=== PATIENT | female | born 1955 | race Caucasian/White ===

== ENCOUNTER → 2018-07-04 | Outpatient (CLI) | payer OTHER ==
[~2018-07-04] MED LIST: ESTROGEN; MEDR2.5; METO25ER PO; PROP60 PO
[2018-07-06 15:07] LABS: HPV 16 Negative (Negative); HPV 18 Negative (Negative); HPV OTHER HR TYPES Negative (Negative)
== END | disposition home or self-care (01) ==
LOC: LAB 12:31 → LAB SHORT 12:31
PROVIDERS: Nurse Practitioner Obstetrics & Gynecology
DX: Z01.419 Encounter for gynecological examination (general) (routine) without abnormal findings (principal)
CPT/HCPCS: 87624; G0123

== ENCOUNTER → 2019-09-18 | Outpatient (CLI) | payer OTHER | END | disposition home or self-care (01) | LOC: LAB SHORT 08:37 → PLD 08:37 | DX: D48.5 Neoplasm of uncertain behavior of skin (principal) | CPT/HCPCS: 88305 ==

== ENCOUNTER → 2020-06-18 | Outpatient (CLI) | payer OTHER | END | disposition home or self-care (01) | LOC: PLD 11:02 → LAB SHORT 11:02 | DX: D48.5 Neoplasm of uncertain behavior of skin (principal) | CPT/HCPCS: 88305 ==

== ENCOUNTER → 2021-03-24 | Outpatient (CLI) | payer OTHER | END | disposition home or self-care (01) | LOC: LAB SHORT 13:02 → LAB 13:02 | DX: R10.13 Epigastric pain (principal) | CPT/HCPCS: 87338 ==

== ENCOUNTER → 2021-06-18 | Outpatient (CLI) | payer OTHER ==
[2021-06-22 13:30] LABS: Stool Occult Blood Guaiac 1 Neg (Neg)
[2021-06-22 13:31] LABS: Stool Occult Blood Guaiac 2 Neg (Neg)
== END | disposition home or self-care (01) ==
LOC: LAB SHORT 08:30
PROVIDERS: Internal Medicine
DX: Z12.11 Encounter for screening for malignant neoplasm of colon (principal)
CPT/HCPCS: 82270

== ENCOUNTER → 2021-09-09 | Outpatient (CLI) | payer OTHER ==
[2021-09-09 08:22] LABS: BASOPHILS ABSOLUTE AUTO 0.04 K/mm3 (0.00-0.23); BASOPHILS PERCENT AUTO 1 % (0-2); EOSINOPHILS ABSOLUTE AUTO 0.12 K/mm3 (0.00-0.68); EOSINOPHILS PERCENT AUTO 2 % (0-6); Hematocrit 43.5 % (33.0-51.0); Hemoglobin 14.5 g/dL (11.5-16.0); IMMATURE GRAN ABSOLUTE AUTO 0.02 K/mm3 (0.00-0.10); IMMATURE GRAN PERCENT AUTO 0 % (0-1); LYMPHOCYTES ABSOLUTE AUTO 1.89 K/mm3 (0.84-5.20); LYMPHOCYTES PERCENT AUTO 34 % (21-46); MONOCYTES ABSOLUTE AUTO 0.62 K/mm3 (0.16-1.47); MONOCYTES PERCENT AUTO 11 % (4-13); Mean Corpuscular HGB 31.7 pg (26.0-34.0); Mean Corpuscular HGB Conc 33.3 g/dL (31.5-36.5); Mean Corpuscular Volume 95 fL (80-100); Mean Platelet Volume 10.3 fL (9.1-12.4); NEUTROPHILS ABSOLUTE AUTO 2.84 K/mm3 (1.96-9.15); NEUTROPHILS PERCENT AUTO 51 % (41-73); Platelet Count 268 K/mm3 (150-400); RDW Coefficient Variation 13.2 % (11.7-14.2); RDW Standard Deviation 46.5 fL (35.1-46.3); Red Blood Cell Count 4.58 M/mm3 (3.80-5.20); White Blood Cell Count 5.53 K/mm3 (4.00-11.30)
[2021-09-09 08:36] LABS: Albumin, Blood 3.6 g/dL (3.4-5.0); Albumin/Globulin Ratio 1.1 (0.8-1.8); Bilirubin, Total 0.6 mg/dL (0.1-1.0); Bun/Creatinine Ratio 25.5 (12.0-20.0); Calcium, Blood 9.3 mg/dL (8.5-10.1); Creatinine, Blood 0.71 mg/dL (0.40-1.00); Globulin, Blood 3.4 g/dL (2.2-4.0); Potassium, Blood 4.7 mmol/L (3.5-5.5); Thyroid Stimulating Hormone 1.65 uIU/mL (0.360-4.800)
== END | disposition home or self-care (01) ==
LOC: LAB SHORT 06:49
PROVIDERS: Internal Medicine
DX: R73.9 Hyperglycemia, unspecified (principal); R03.0 Elevated blood-pressure reading, without diagnosis of hypertension
CPT/HCPCS: 36415; 80053; 83036; 84443; 85025

== ENCOUNTER → 2021-09-23 | Outpatient (CLI) | payer OTHER ==
[2021-09-24 10:11] LABS: Candida species (DNA Probe) Negative (NEGATIVE); G. vaginalis (DNA Probe) Positive (NEGATIVE); T. vaginalis (DNA Probe) Negative (NEGATIVE)
== END | disposition home or self-care (01) ==
LOC: LAB SHORT 11:30 → LAB 11:30
PROVIDERS: Family Medicine
DX: N89.8 Other specified noninflammatory disorders of vagina (principal)
CPT/HCPCS: 87480; 87510; 87660

== ENCOUNTER → 2021-11-04 | Outpatient (CLI) | payer OTHER | END | disposition home or self-care (01) | LOC: PLD 14:01 → LAB SHORT 14:01 | DX: N84.1 Polyp of cervix uteri (principal) | CPT/HCPCS: 88305 ==

== ENCOUNTER → 2022-03-14 | Outpatient (CLI) | payer MEDICARE, BC ==
[2022-03-16 09:11] LABS: HPV 16 Negative (Negative); HPV 18 Negative (Negative); HPV OTHER HR TYPES Negative (Negative)
== END ==
LOC: LAB SHORT 15:09
PROVIDERS: Family Medicine
DX: Z01.419 Encounter for gynecological examination (general) (routine) without abnormal findings (principal)
CPT/HCPCS: 87624; G0123

== ENCOUNTER → 2022-05-03 | Outpatient (CLI) | payer MEDICARE, BC | END | disposition home or self-care (01) | LOC: LAB SHORT 11:24 → LAB 11:24 | DX: L57.0 Actinic keratosis (principal) | CPT/HCPCS: 88305 ==

== ENCOUNTER 2022-07-01 06:13 | Day surgery (SDC) | payer MEDICARE, BC ==
[~2022-07-01] VITALS: Ht 180.3 cm; Wt 70.5 kg
[2022-07-01] MEDS ORDERED: PROG100 PO (06:56)
[2022-07-01] MEDS ORDERED: ESTRADIOL (TWI1 EAC4 TD (06:56)
--- NOTE | 2022-07-01 09:28 | NUR ---
07/01/22 0928 Dixie Verde PT STATES PAIN SHE CAN FEEL IT BUT JUST AN ACHE PAIN SCALE AT 1 BUT TOLERABLE. PT IN RECLINER WITH AT SIDE.
== END 2022-07-01 09:50 | disposition home or self-care (01) ==
LOC: ORSCSDS 06:13
PROVIDERS: Podiatrist Foot & Ankle Surgery
PROC: 0SGN04Z Fusion of Left Metatarsal-Phalangeal Joint with Internal Fixation Device, Open Approach (ICD-10-PCS; principal; 2022-07-01 07:30)
PROC: 0SGQ04Z Fusion of Left Toe Phalangeal Joint with Internal Fixation Device, Open Approach (ICD-10-PCS; principal; 2022-07-01 07:30)
DX: M20.5X2 Other deformities of toe(s) (acquired), left foot (principal); M20.42 Other hammer toe(s) (acquired), left foot; M79.672 Pain in left foot; Z79.899 Other long term (current) drug therapy
CPT/HCPCS: C1713; J0171; J0690; J1100; J1885; J2250; J2370; J2405; J2704; J2795; J3010; J7120

== ENCOUNTER 2022-08-20 13:57 | Emergency (ER) | payer MEDICARE, BC ==
[~2022-08-20] VITALS: Ht 177.8 cm; Wt 69.8 kg
[~2022-08-20 13:57] MED LIST changes: +ESTRADIOL (TWI1 EAC4 TD; +PROG100 PO
[2022-08-20 14:29] LABS: BASOPHILS ABSOLUTE AUTO 0.05 K/mm3 (0.00-0.23); BASOPHILS PERCENT AUTO 1 % (0-2); EOSINOPHILS ABSOLUTE AUTO 0.17 K/mm3 (0.00-0.68); EOSINOPHILS PERCENT AUTO 2 % (0-6); Hematocrit 42.9 % (33.0-51.0); Hemoglobin 14.7 g/dL (11.5-16.0); IMMATURE GRAN ABSOLUTE AUTO 0.04 K/mm3 (0.00-0.10); IMMATURE GRAN PERCENT AUTO 1 % (0-1); LYMPHOCYTES PERCENT AUTO 40 % (21-46); MONOCYTES ABSOLUTE AUTO 0.78 K/mm3 (0.16-1.47); MONOCYTES PERCENT AUTO 10 % (4-13); Mean Corpuscular HGB 31.7 pg (26.0-34.0); Mean Corpuscular HGB Conc 34.3 g/dL (31.5-36.5); Mean Corpuscular Volume 93 fL (80-100); Mean Platelet Volume 10.3 fL (9.1-12.4); NEUTROPHILS ABSOLUTE AUTO 3.43 K/mm3 (1.96-9.15); NEUTROPHILS PERCENT AUTO 46 % (41-73); Platelet Count 270 K/mm3 (150-400); RDW Coefficient Variation 13.3 % (11.7-14.2); RDW Standard Deviation 45.3 fL (35.1-46.3); Red Blood Cell Count 4.64 M/mm3 (3.80-5.20); White Blood Cell Count 7.47 K/mm3 (4.00-11.30)
[2022-08-20 14:46] LABS: Albumin/Globulin Ratio 1.2 (0.8-1.8); Bilirubin, Total 0.3 mg/dL (0.1-1.0); Bun/Creatinine Ratio 18.9 (12.0-20.0); Calcium, Blood 9.5 mg/dL (8.5-10.1); Creatinine, Blood 0.95 mg/dL (0.40-1.00); Globulin, Blood 3.3 g/dL (2.2-4.0); Potassium, Blood 3.7 mmol/L (3.5-5.5); Total Protein, Blood 7.3 g/dL (6.4-8.2)
[2022-08-20 17:14] VITALS: BP 148/87
== END 2022-08-20 17:15 | disposition home or self-care (01) ==
LOC: ER 13:57
PROVIDERS: Emergency Medicine
DX: R10.13 Epigastric pain (principal); Z88.5 Allergy status to narcotic agent; Z79.899 Other long term (current) drug therapy
CPT/HCPCS: 71046; 80053; 83690; 83880; 84484; 85025; 93005; 93010; 96361; 96374; 99284-25; A9270; C9113; J7030

== ENCOUNTER 2024-01-01 07:40 | Day surgery (SDC) | payer MEDICARE, BC ==
[2024-01-01] VITALS (10 sets, daily range): BP systolic 117–146; BP diastolic 66–83
[~2024-01-01] VITALS: Ht 177.8 cm; Wt 69.8 kg
[~2024-01-01 07:40] MED LIST changes: +AZELASTINE137 MCG/01 INH; +BUSPIRONE HCL7.5 M1 PO; +Calcium Carbon500 MG PO; +CeFAZolin Sodium 2,000 MG in NS 100 ML IV SCH; +DHEA PO; +FISH OIL 1,0001 EA10 PO; +KETO.5OPSO RIGHTEYE; +Lactated Ringer's 1,000 ML IV SCH; +MAGNESIUM OXID500 MG PO; +PRED FORTE5 M1 RIGHTEYE; +PRESERVISION A1 EAC4 PO; +SERT25 PO; +VITAMIN D5000 UNIT PO
--- NOTE | 2024-01-01 08:30 | NUR ---
Ambulatory in Day Surgery History, Chart, Medications and Allergies reviewed before start of procedure. Lungs clear T/O to Auscultation. Patient confirms NPO status and agrees with scheduled surgery. Patient reports completing Chlorhexadine shower X2 prior to admission to hospital.Surgical site prepped with 2% Chlorhexidine cloth wipe. Patient States Post-Procedure ride home has been arranged.
--- NOTE | 2024-01-01 08:37 | NUR ---
PT VERBALIZES HER DESIRE TO "NOT HAVE ANY ANTIBIOTICS." WILL DISCUSS WITH .
[2024-01-01] MEDS ORDERED: Bupivacaine 0.5% HCl 5 MG/ML 30MLVIAL ONE (09:30)
[2024-01-01] MEDS ORDERED: Midazolam HCl 1MG / ML 2ML Vial IV ONE (09:35)
[2024-01-01] MEDS ORDERED: FentaNYL Citrate 50 MCG/ML 2 ML Injection ONE (09:42)
[2024-01-01] MEDS ORDERED: Midazolam HCl 1MG / ML 2ML Vial ONE (09:46)
[2024-01-01] MEDS ORDERED: Ondansetron HCl 2 MG / ML 2ML Vial ONE (10:08)
[2024-01-01] MEDS ORDERED: FentaNYL Citrate 50 MCG/ML 2 ML Injection IV PRN ×3 (10:20)
[2024-01-01] MEDS ORDERED: Labetalol HCL 5 MG/ML 4ML Injection (Single Dose) IV PRN (10:20)
[2024-01-01] MEDS ORDERED: Metoclopramide HCl 5MG / ML 2ML Vial IV PRN (10:20)
[2024-01-01] MEDS ORDERED: HYDROcodone 5-APAP 325 TAB PO PRN (10:30)
--- NOTE | 2024-01-01 11:44 | NUR ---
Patient up to Ambulate independently. Gait steady. Discharge instructions reviewed with patient. Patient verbalizes understanding. Copy given to patient to take home, [facility] FAMILY. Patient States Post-Procedure ride home has been arranged. Discharged via wheelchair to private car for ride home. INCISION C/D/I. TOLERATING PO. REPORTS MORE AWAKE/ALERT AND READY TO GO HOME. DENIES PAIN.
== END 2024-01-01 11:44 | disposition home or self-care (01) ==
LOC: ORSCMMR 07:40 → ORD 09:00 → ORSCMMR 11:44
PROVIDERS: Surgery
PROC: 0WBF0ZX Excision of Abdominal Wall, Open Approach, Diagnostic (ICD-10-PCS; principal; 2024-01-01 09:00)
DX: D17.1 Benign lipomatous neoplasm of skin and subcutaneous tissue of trunk (principal)
CPT/HCPCS: 88304; J2250; J2405; J3010; J7120

== ENCOUNTER → 2024-01-26 | Outpatient (CLI) | payer MEDICARE, BC ==
[~2024-01-26] MED LIST changes: -CeFAZolin Sodium 2,000 MG in NS 100 ML IV SCH; -Lactated Ringer's 1,000 ML IV SCH
[2024-02-09 10:26] LABS: HPV HIGH RISK BY TMA Not Detected; HPV SOURCE Cervical
== END | disposition home or self-care (01) ==
LOC: LAB 18:02 → LAB SHORT 18:02
PROVIDERS: Physician Assistant
DX: Z01.419 Encounter for gynecological examination (general) (routine) without abnormal findings (principal); N95.0 Postmenopausal bleeding
CPT/HCPCS: 87624; G0123

== ENCOUNTER → 2024-02-23 | Outpatient (CLI) | payer MEDICARE, BC ==
[2024-02-23 14:32] LABS: BASOPHILS ABSOLUTE AUTO 0.06 K/mm3 (0.00-0.23); BASOPHILS PERCENT AUTO 1 % (0-2); EOSINOPHILS ABSOLUTE AUTO 0.17 K/mm3 (0.00-0.68); EOSINOPHILS PERCENT AUTO 2 % (0-6); Hemoglobin 15.1 g/dL (11.5-16.0); IMMATURE GRAN ABSOLUTE AUTO 0.02 K/mm3 (0.00-0.10); IMMATURE GRAN PERCENT AUTO 0 % (0-1); LYMPHOCYTES ABSOLUTE AUTO 2.64 K/mm3 (0.84-5.20); LYMPHOCYTES PERCENT AUTO 37 % (21-46); MONOCYTES ABSOLUTE AUTO 0.69 K/mm3 (0.16-1.47); MONOCYTES PERCENT AUTO 10 % (4-13); Mean Corpuscular HGB 31.7 pg (26.0-34.0); Mean Corpuscular HGB Conc 34.3 g/dL (31.5-36.5); Mean Corpuscular Volume 92 fL (80-100); Mean Platelet Volume 10.3 fL (9.1-12.4); NEUTROPHILS ABSOLUTE AUTO 3.54 K/mm3 (1.96-9.15); NEUTROPHILS PERCENT AUTO 50 % (41-73); Platelet Count 299 K/mm3 (150-400); RDW Coefficient Variation 13.3 % (11.7-14.2); RDW Standard Deviation 45.1 fL (35.1-46.3); Red Blood Cell Count 4.77 M/mm3 (3.80-5.20); White Blood Cell Count 7.12 K/mm3 (4.00-11.30)
[2024-02-23 14:43] LABS: Bun/Creatinine Ratio 15.9 (12.0-20.0); Calcium, Blood 9.4 mg/dL (8.5-10.1); Creatinine, Blood 0.88 mg/dL (0.40-1.00); Potassium, Blood 3.9 mmol/L (3.5-5.5)
[2024-02-23 14:55] LABS: Free Thyroxine 1.01 ng/dL (0.70-1.60); Thyroid Stimulating Hormone 1.452 uIU/mL (0.360-4.800)
== END ==
LOC: LAB 14:20 → LAB SHORT 14:20
PROVIDERS: Physician Assistant Surgical; Podiatrist Foot & Ankle Surgery
DX: R53.83 Other fatigue (principal)
CPT/HCPCS: 80048; 84439; 84443; 84481; 85025

== ENCOUNTER 2024-05-03 07:41 | Day surgery (SDC) | payer MEDICARE, BC ==
[~2024-05-03] VITALS: Ht 177.8 cm; Wt 69.1 kg
[~2024-05-03 07:41] MED LIST changes: +EPINEPhrine HCl 1 MG/ML 1ML Amp ONE; +Ropivacaine 0.5% HCL/PF 5 MG/ML 30ML Vial ONE
[2024-05-03] MEDS ORDERED: CeFAZolin Sodium 2,000 MG VIAL ONE (08:29)
[2024-05-03] MEDS ORDERED: LOSARTAN POTASS25 M2 PO (08:35)
[2024-05-03] MEDS ORDERED: VILAZODONE HCL10 MG PO (08:35)
[2024-05-03] MEDS ORDERED: EYLEA IO (08:41)
[2024-05-03] MEDS ORDERED: NS 500 ML IV ONE (08:53)
[2024-05-03] MEDS ORDERED: FentaNYL Citrate 50 MCG/ML 2 ML Injection ONE (09:21)
[2024-05-03] MEDS ORDERED: Midazolam HCl 1MG / ML 2ML Vial ONE (09:21)
[2024-05-03] MEDS ORDERED: propofoL 20 ML IV ONE (09:21)
[2024-05-03] MEDS ORDERED: Dexamethasone Sod Phos 10 MG/ML 1ML VIAL ONE (09:22)
[2024-05-03] MEDS ORDERED: Ondansetron HCl 2 MG / ML 2ML Vial ONE (09:22)
[2024-05-03] MEDS ORDERED: Ketorolac Tromethamine 30mg Vial ONE (09:22)
[2024-05-03] MEDS ORDERED: Bupivacaine 0.5% HCl 5 MG/ML 30MLVIAL ONE (09:23)
[2024-05-03] MEDS ORDERED: Lidocaine 2%-Epineph 1:200000 20 ML SDV ONE (09:23)
[2024-05-03] MEDS ORDERED: propofoL 50 ML IV ONE (09:52)
[2024-05-03] MEDS ORDERED: Dexmedetomidine HCL 200 MCG / 2 ML ONE (09:52)
[2024-05-03 10:48] VITALS: BP 102/62
--- NOTE | 2024-05-03 10:53 | NUR ---
05/03/24 1053 Jasmine Urbina PT IN RECLINER WITH LEGS ELEVATED; AT CHAIRSIDE. PO FLUIDS TOLERATED WELL. PT DENIES NAUSEA AND PAIN AT THIS TIME.
== END 2024-05-03 11:00 | disposition home or self-care (01) ==
LOC: ORSCSDS 07:41
PROVIDERS: Podiatrist Foot & Ankle Surgery
PROC: 0YPB0YZ Removal of Other Device from Left Lower Extremity, Open Approach (ICD-10-PCS; principal; 2024-05-03 09:30)
DX: T84.84XA Pain due to internal orthopedic prosthetic devices, implants and grafts, initial encounter (principal); M20.22 Hallux rigidus, left foot; F41.9 Anxiety disorder, unspecified; Z79.899 Other long term (current) drug therapy
CPT/HCPCS: J0171; J0690; J1100; J1885; J2250; J2405; J2704; J2795; J3010

== ENCOUNTER → 2024-07-19 | Outpatient (CLI) | payer MEDICARE, BC ==
[~2024-07-19] MED LIST changes: -EPINEPhrine HCl 1 MG/ML 1ML Amp ONE; +EYLEA IO; +LOSARTAN POTASS25 M2 PO; -Ropivacaine 0.5% HCL/PF 5 MG/ML 30ML Vial ONE; +VILAZODONE HCL10 MG PO
[2024-07-29 15:33] LABS: HPV HIGH RISK BY TMA Not Detected; HPV SOURCE Cervical
== END ==
LOC: LAB SHORT 14:44 → LAB 14:44
PROVIDERS: Obstetrics & Gynecology
DX: Z01.419 Encounter for gynecological examination (general) (routine) without abnormal findings (principal)
CPT/HCPCS: 87624; G0123